=== PATIENT | male | born 1955 | race Caucasian/White ===

== ENCOUNTER 2019-01-28 11:40 | Emergency (ER) | payer BC, MEDICARE ==
--- OUTSIDE RECORDS SUMMARY | 2019-01-28 11:56 | XMS REPORT | Continuity of Care Document ---
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 No Information Available Social History Type Date Description Comments Sex Unknown ETOH Use Denies alcohol use Tobacco Use Start: Unknown Patient has never smoked Recreational Drug Use Denies Drug Use Smoking Status Reviewed: 01/05/19 Patient has never smoked Exercise Type/Frequency Exercises regularly Allergies, Adverse Reactions, Alerts Active Allergies Reaction Severity Comments Date Sulfa Drugs hives 09/29/2018 Formaldehyde 09/29/2018 Inactive Allergies NKDA 09/27/2018 Medications Active Medications SIG Qnty Indications Ordering Provider Date Nitroglycerin 1 sl q5mins x3 as Unknown 0.4mg Tablets needed for chest Sub pain Vitamin D 500MG 1 capsule by Unknown mouth daily as needed Claritin-D 24 Hour 1 by mouth every Unknown 10-240mg day as needed Tablets ER 24HR Epipen 2-Evert use as Unknown 0.3mg/0.3ML directed-uses for Solution Auto-Inject chemical exposure Diclofenac Sodium Take 1 Tablet By Unknown 75mg Mouth Twice Daily Tablets DR With Food Tramadol HCL Take 1 Tablet By Unknown 50mg Tablets Mouth Every 4 Hours as Needed . DO Not Exceed 6 Per 24 Hours Eliquis Take 2 Tablets Unknown 5mg Tablets Twice A Day For 7 Days Then Decrease To 1 Tab Twice A Day Medications Administered in Office Medication SIG Qnty Indications Ordering Provider Date Depomedrol 40MG Boaz Galicia MD 11/24/2018 Injection Immunizations Description No Information Available Vital Signs Date Vital Result Comment 01/05/2019 9:59am Height 72 inches 6'0" Weight 200.00 lb Heart Rate 82 /min BP Systolic Sitting 102 mmHg BP Diastolic Sitting 70 mmHg Respiratory Rate 18 /min Pain Level 0 O2 % BldC Oximetry 94 % BMI (Body Mass Index) 27.1 kg/m2 11/24/2018 2:42pm Height 72 inches 6'0" Weight 200.00 lb Heart Rate 74 /min BP Systolic Sitting 126 mmHg BP Diastolic Sitting 80 mmHg Respiratory Rate 16 /min Pain Level 7 O2 % BldC Oximetry 95 % BMI (Body Mass Index) 27.1 kg/m2 Results Description No Information Available Procedures Date Code Description Status 11/24/2018 41773 Rad Exam; Elbow, Comp Completed 11/24/2018 93524 Unlisted Procedure, Musculoskeletal General Completed 11/21/2018 37863 Holter Monitor Review (24 hr)dr review & interp only Completed 11/20/2018 01367 ECG Monitor/Recording W/Visual Superimposition Scanning Completed 11/16/2018 30512 ECHO Stress Test Incl Perf Contiuous ekg Monitoring W/Phys Completed Superv 11/13/2018 82960 ECHO Transthoracic, Real-Time 2D With Doppler And Color Completed Flow 09/29/2018 75268 EKG Tracing & Interpretation Completed Medical Devices Description No Information Available Encounters Type Date Location Provider Dx Diagnosis Office Visit 11/24/2018 [facility] Boaz Galicia, G56.21 Lesion of ulnar 2:00p at [place] nerve, right upper limb M25.521 Pain in right elbow Office Visit 09/29/2018 9:40a Cardiology David Dumont R07.9 Chest pain, Services Of Carolyn Mcallister M.D. unspecified AT [place] R42 Dizziness and giddiness R94.31 Abnormal electrocardiogram [ECG] [EKG] R00.1 Bradycardia, unspecified M79.603 Pain in arm, unspecified Assessments Date Code Description Provider 01/05/2019 G56.21 Lesion of ulnar nerve, right upper Boaz Galicia MD limb 11/24/2018 G56.21 Lesion of ulnar nerve, right upper Boaz Galicia MD limb 11/24/2018 M25.521 Pain in right elbow Boaz Galicia MD 11/21/2018 I49.3 Ventricular premature depolarization David Mcallister M.D. 11/21/2018 I49.1 Atrial premature depolarization David Mcallister M.D. 11/20/2018 R42 Dizziness and giddiness Nurse Visit [facility] 11/16/2018 R07.9 Chest pain, unspecified David Mcallister M.D. 11/16/2018 R42 Dizziness and giddiness David Mcallister M.D. 11/16/2018 R94.31 Abnormal electrocardiogram [ECG] [EKG] David Mcallister M.D. 11/16/2018 R00.1 Bradycardia, unspecified David Mcallister M.D. 11/13/2018 R07.9 Chest pain, unspecified David Mcallister M.D. 11/13/2018 R07.9 Chest pain, unspecified Traveling ECHO 2 11/13/2018 R42 Dizziness and giddiness Traveling ECHO 2 11/13/2018 R94.31 Abnormal electrocardiogram [ECG] [EKG] Traveling E[facility] 2 09/29/2018 R07.9 Chest pain, unspecified David Mcallister M.D. 09/29/2018 R42 Dizziness and giddiness David Mcallister M.D. 09/29/2018 R94.31 Abnormal electrocardiogram [ECG] [EKG] David Mcallister M.D. 09/29/2018 R00.1 Bradycardia, unspecified David Mcallister M.D. 09/29/2018 M79.603 Pain in arm, unspecified David Mcallister M.D. Plan of Treatment Future Appointment(s):01/12/2019 11:20 am - David [facility] M.D. at [facility]01/05/2019 - MARY Perdomo56.21 Lesion of ulnar nerve, right upper limbFollow up:Follow up: 3 months Functional Status Description No Information Available Mental Status Description No Information Available Referrals Description No Information Available
--- OUTSIDE RECORDS SUMMARY | 2019-01-28 11:56 | XMS REPORT | Continuity of Care Document ---
:1955 External Reference #:[id number] Author Name David Mcallister M.D. 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 Problems Description No Information Available Social History Type Date Description Comments Sex Unknown ETOH Use Denies alcohol use Tobacco Use Start: Unknown Patient has never smoked Recreational Drug Use Denies Drug Use Smoking Status Reviewed: 01/12/19 Patient has never smoked Exercise Type/Frequency Exercises regularly Allergies, Adverse Reactions, Alerts Active Allergies Reaction Severity Comments Date Sulfa Drugs hives 09/29/2018 Formaldehyde 09/29/2018 Inactive Allergies NKDA 09/27/2018 Medications Active Medications SIG Qnty Indications Ordering Provider Date Nitroglycerin 1 sl q5mins x3 as Unknown 0.4mg Tablets needed for chest Sub pain Claritin-D 24 Hour 1 by mouth every Unknown 10-240mg day as needed Tablets ER 24HR Epipen 2-Evert use as Unknown 0.3mg/0.3ML directed-uses for Solution Auto-Inject chemical exposure Diclofenac Sodium Take 1 Tablet By Unknown 75mg Mouth Twice Daily Tablets DR With Food as needed Tramadol HCL Take 1 Tablet By Unknown 50mg Tablets Mouth Every 4 Hours as Needed . DO Not Exceed 6 Per 24 Hours Eliquis 1 Tab Twice A Day Unknown 5mg Tablets Tums 1-2 tab by mouth Unknown 500mg Chewtabs four times a day as needed Medications Administered in Office Medication SIG Qnty Indications Ordering Provider Date Depomedrol 40MG Boaz Galicia MD 11/24/2018 Injection Immunizations Description No Information Available Vital Signs Date Vital Result Comment 01/12/2019 10:46am Height 72 inches 6'0" Weight 201.00 lb Heart Rate 68 /min BP Systolic Sitting 110 mmHg BP Diastolic Sitting 86 mmHg BP Systolic Standing 114 mmHg BP Diastolic Standing 84 mmHg Respiratory Rate 16 /min Pain Level 1 chest pain O2 % BldC Oximetry 95 % BMI (Body Mass Index) 27.3 kg/m2 01/05/2019 9:59am Height 72 inches 6'0" Weight 200.00 lb Heart Rate 82 /min BP Systolic Sitting 102 mmHg BP Diastolic Sitting 70 mmHg Respiratory Rate 18 /min Pain Level 0 O2 % BldC Oximetry 94 % BMI (Body Mass Index) 27.1 kg/m2 Results Description No Information Available Procedures Date Code Description Status 01/12/2019 45691 EKG Tracing & Interpretation Completed 11/24/2018 08267 Rad Exam; Elbow, Comp Completed 11/24/2018 31053 Unlisted Procedure, Musculoskeletal General Completed 11/21/2018 57164 Holter Monitor Review (24 hr)dr review & interp only Completed 11/20/2018 53413 ECG Monitor/Recording W/Visual Superimposition Scanning Completed 11/16/2018 65072 ECHO Stress Test Incl Perf Contiuous ekg Monitoring W/Phys Completed Superv 11/13/2018 51343 ECHO Transthoracic, Real-Time 2D With Doppler And Color Completed Flow 09/29/2018 88117 EKG Tracing & Interpretation Completed Medical Devices Description No Information Available Encounters Type Date Location Provider Dx Diagnosis Office Visit 01/12/2019 Cardiology David Dumont I49.3 Ventricular premature 11:20a [facility] Mickey Dickey R06.02 Shortness of breath R07.9 Chest pain, unspecified I77.819 Aortic ectasia, unspecified site I34.0 Nonrheumatic mitral (valve) insufficiency Office Visit 11/24/2018 2:00p [facility] Boaz Galicia, G56.21 Lesion of omar Gan MD ulnar nerve, right upper limb M25.521 Pain in right elbow Office Visit 09/29/2018 9:40a Cardiology David Dumont R07.9 Chest pain, Services Of Carolyn Mcallister M.D. unspecified AT [place] R42 Dizziness and giddiness R94.31 Abnormal electrocardiogram [ECG] [EKG] R00.1 Bradycardia, unspecified M79.603 Pain in arm, unspecified Assessments Date Code Description Provider 01/12/2019 I49.3 Ventricular premature depolarization David Mcallister M.D. 01/12/2019 R06.02 Shortness of breath David Mcallister M.D. 01/12/2019 R07.9 Chest pain, unspecified David Mcallister M.D. 01/12/2019 I77.819 Aortic ectasia, unspecified site David Mcallister M.D. 01/12/2019 I34.0 Nonrheumatic mitral (valve) David Mcallister M.D. insufficiency 01/05/2019 G56.21 Lesion of ulnar nerve, right upper Boaz Galicia MD limb 11/24/2018 G56.21 Lesion of ulnar nerve, right upper Boaz Galicia MD limb 11/24/2018 M25.521 Pain in right elbow Boaz Galicia MD 11/21/2018 I49.3 Ventricular premature depolarization David Mcallister M.D. 11/21/2018 I49.1 Atrial premature depolarization David Mcallister M.D. 11/20/2018 R42 Dizziness and giddiness Nurse Visit [facility] 11/16/2018 R07.9 Chest pain, unspecified David Mcallister [...] unspecified David Mcallister M.D. Plan of Treatment 01/12/2019 - David Mcallister M.D.I49.3 Ventricular premature venibupqttnjgfK51.02 Shortness of whofpzK05.9 Chest pain, cuwczhdfcwtI75.819 Aortic ectasia, unspecified siteNew Orders:Echocardiogram, Ordered: Follow up:one yr ovI34.0 Nonrheumatic mitral (valve) insufficiency Functional Status Description No Information Available Mental Status Description No Information Available Referrals Description No Information Available
[2019-01-28 12:05] VITALS: BP 127/85
--- NOTE | 2019-01-28 12:15 | UC ---
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 HAS BEEN DOING ICE PACKS, IS ON BLOOD THINNERS - History Of Current Complaint Chief Complaint: UCUpperExtremity Stated Complaint: RIGHT WRIST INJURY Time Seen by Provider: 01/28/19 12:07 Hx Obtained From: Patient ?: No Onset/Duration: Sudden Onset, Lasting Hours Severity Initially: Severe Severity Currently: Severe Pain Intensity: 8 Character Of Pain: Aching, Throbbing Aggravating Factor(s): Movement Alleviating Factor(s): Ice - Allergies/Home Medications Allergies/Adverse Reactions: Allergies Allergy/AdvReac Type Severity Reaction Status Date / Time Sulfa (Sulfonamide Allergy Anaphylatic Verified 01/28/19 12:05 Antibiotics) Shock Chemicals Allergy Rash to Uncoded 12/01/14 13:27 Anaphylaxis Home Medications: Home Medications Apixaban [Eliquis] 5 mg PO BID 01/28/19 [History Confirmed 01/28/19] PMH/Surg Hx/FS Hx/Imm Hx Previously Healthy: Yes - Surgical History Surgical History: Yes Surgery Procedure, Year, and Place: nasal surgery. ulcer cautery - Family History Known Family History: Positive: Hypertension - Social History Alcohol Use: None Substance Use Type: None Smoking Status (MU): Never Smoked Tobacco Review of Systems All Other Systems Reviewed And Are Negative: Yes Musculoskeletal: Positive: Arthralgia, Myalgia Is Patient Immunocompromised?: No Physical Exam Triage Information Reviewed: Yes Appearance: Well-Appearing, Well-Nourished, Pain Distress Vital Signs: Initial Vital Signs Temp 98.5 F 01/28/19 11:57 Pulse 72 01/28/19 11:57 Resp 18 01/28/19 11:57 BP 127/85 01/28/19 11:57 Pulse Ox 97 01/28/19 11:57 Vital Signs Reviewed: Yes Eye Exam: Normal ENT Exam: Normal Dental Exam: Normal Neck exam: Normal Respiratory Exam: Normal Respiratory: Positive: Chest non-tender, Lungs clear, Normal breath sounds Cardiovascular Exam: Normal Cardiovascular: Positive: RRR, Pulses Normal Abdominal Exam: Normal Musculoskeletal: Positive: ROM Limited @ - DUE TO PAIN, CAN OVE THUMB WITHOUT DIFFICULTY, Edema @ - MILD AROUND WRIST AND HAND Neurological Exam: Normal Psychological Exam: Normal Skin: Positive: Other - NO BRUISING Hand/Wrist Course/Dx - Course Course Of Treatment: hx obtained, exam performed ,meds reviewed, xray obtained. splint applied, referrred to Dr Galicia - Differential Dx/Diagnosis Differential Diagnosis/HQI/PQRI: Contusion, Fracture, Sprain, Strain Provider Diagnosis: Wrist fracture, right Discharge ED - Sign-Out/Discharge Documenting (check all that apply): Patient Departure All imaging exams completed and their final reports reviewed: Yes - Discharge Plan Condition: Stable Disposition: HOME Referrals: Boaz Gunderson MD [Primary Care Provider] - Boaz Galicia MD [Medical Doctor] - Additional Instructions: 1. continue to ice as needed. 2. Tylenol 1000 mg every 8 hours for pain 3. use the splint and follow up with Dr fraga office tomorrow - Billing Disposition and Condition Condition: STABLE Disposition: Home
== END 2019-01-28 12:59 | disposition home or self-care (01) ==
LOC: UCCORT 11:40
DX: S62.101A Fracture of unspecified carpal bone, right wrist, initial encounter for closed fracture (principal); Z88.2 Allergy status to sulfonamides; Z91.09 Other allergy status, other than to drugs and biological substances; Z79.01 Long term (current) use of anticoagulants; W18.39XA Other fall on same level, initial encounter; Y93.51 Activity, roller skating (inline) and skateboarding; Y92.9 Unspecified place or not applicable
CPT/HCPCS: 99211; G0463